=== PATIENT | female | born 1955 | race Caucasian/White ===

== ENCOUNTER → 2020-06-02 | Emergency (ER) | payer MEDICARE ==
[~2020-06-02] VITALS: Ht 157.5 cm; Wt 45.4 kg
[~2020-06-02] MED LIST: LORAZEPAM INJ 2 MG/ML VIAL ONE; NITROFURANTOIN/NITROFURAN MAC 100 MG CAPSULE ONE; OLANZAPINE 10 MG VIAL IM ONE; diphenhydrAMINE HCL 50 MG/ML VIAL ONE
--- NOTE | 2020-06-02 19:35 | NUR ---
DONI FROM [facility] FOR C/O AGITTION. ANXIETY AND REFUSING TO TAKE HER MEDICATIONS ( PER REPORT). THE PATIENT IS PLACED IN ER BED #12. DENIES PAIN. IN ROOM AIR AND DENIES SOB. RESPIRATION REGULAR AND UNLABORED. THE PATIENT IS NOTED TO BE AGITATED CONSTANT SCREENING/YELLING, TRYING TO KICK AND SCRATCH. WARM BLANKET PROVIDED FOR COMFORT. WILL CONTINUE TO MONITOR.
[2020-06-02] MEDS: OLANZAPINE 10 MG VIAL IM ONE (19:49)
[2020-06-02 21:08] LABS: BASOPHILS % (AUTO) 0.3 % (0.0-2.0); EOSINOPHILS % (AUTO) 0.3 % (0.0-6.0); HEMATOCRIT 31 % (33-45); HEMOGLOBIN 9.6 g/dL (11.5-14.8); LYMPHOCYTES # (AUTO) 3.6 /CMM (0.8-4.8); LYMPHOCYTES % (AUTO) 46.8 % (20.0-44.0); MEAN CORPUSCULAR HGB CONC 31 g/dl (31.0-36.0); MEAN CORPUSCULAR VOLUME 85 fL (82-100); MONOCYTES % (AUTO) 12.7 % (2.0-12.0); NEUTROPHILS # (AUTO) 3.1 /CMM (1.8-8.9); NEUTROPHILS % (AUTO) 39.9 % (43.0-81.0); PLATELET COUNT (AUTO) 393 /CMM (150-450); RED BLOOD CELL COUNT(AUTO) 3.67 MIL/uL (4.0-5.2); WHITE BLOOD COUNT (AUTO) 7.7 K/uL (4.3-11.0)
[2020-06-02 21:22] LABS: CARBON DIOXIDE 32 mmol/L (21-32); CHLORIDE 102 mmol/L (98-107); CREATININE 0.4 mg/dL (0.6-1.3); GLUCOSE 87 mg/dL (74-106); POTASSIUM 4.4 mmol/L (3.5-5.1); SODIUM SERUM 140 mmol/L (136-145); UREA NITROGEN, BLOOD 27 mg/dL (7-18)
[2020-06-02 21:28] LABS: ALANINE AMINOTRANSFERASE 16 U/L (12-78); ALBUMIN 3.2 g/dL (3.4-5.0); ALCOHOL, BLOOD < 3 mg/dL (0-0); ALKALINE PHOSPHATASE 75 U/L (46-116); ASPARTATE AMINOTRANSFERASE 18 U/L (15-37); BILIRUBIN,DIRECT 0.1 mg/dL (0.0-0.2); BILIRUBIN,TOTAL 0.2 mg/dL (0.2-1.0); TOTAL PROTEIN, SERUM 7.2 g/dL (6.4-8.2)
[2020-06-02] MEDS: LORAZEPAM INJ 2 MG/ML VIAL IM ONE (21:30)
[2020-06-02] MEDS: diphenhydrAMINE HCL 50 MG/ML VIAL IM ONE (21:30)
[2020-06-02 21:39] LABS: BILIRUBIN,URINE NEGATIVE (NEGATIVE); COLOR,URINE YELLOW (YELLOW); LEUKOCYTE ESTERASE ,URINE SMALL (NEGATIVE); NITRITE, URINE NEGATIVE (NEGATIVE); PH,URINE 6.5 (5.0-8.0); PROTEIN,URINE NEGATIVE (NEGATIVE); UGLUCOSE NEGATIVE (NEGATIVE); UROBILINOGEN,URINE 0.2 EU/dL (0.2)
[2020-06-02 21:43] LABS: BACTERIA,URINE 1+ /HPF (None Seen)
[2020-06-02 21:44] LABS: MUCUS,URINE Few /LPF (None Seen)
--- NOTE | 2020-06-02 23:30 | NUR ---
REC'D REPORT FROM SHAN BULL FOR ORAL
--- NOTE | 2020-06-03 00:37 | NUR ---
PT RESTING COMFORTABLY WITH EYES CLOSED. PT EASILY AROUSABLE.
--- NOTE | 2020-06-03 02:15 | NUR ---
PT RESTING COMFORTABLY WITH EYES CLOSED. EASILY AROUSABLE
--- NOTE | 2020-06-03 05:30 | NUR ---
ATTEMPTED TO MEDICATE PT. PT SEDATED, UNSAFE TO SWALLOW PILL AT THIS TIME. WILL ATTEMPT WHEN PT IS MORE AWAKE
--- NOTE | 2020-06-03 08:00 | NUR ---
Patient is resting comfortably in bed with eyes closed. Easily aroused. VSS
[2020-06-03] MEDS: NITROFURANTOIN/NITROFURAN MAC 100 MG CAPSULE PO ONE (10:47)
--- NOTE | 2020-06-03 10:47 | NUR ---
PT MEDICATED PER ERMD ORDER. PT SITTING UP EATING BREAKFAST. PT CALM & COOPERATIVE, NAD NOTED AT THIS TIME.
--- NOTE | 2020-06-03 11:42 | NUR ---
THE PATIENT IS IN ER BED #12. ALERT AND ORIENTED X2. DENIES PAIN. IN ROOM AIR AND DENIES SOB. RESPIRATION REGULAR AND UNLABORED. WILL CONTINUE TO MONITOR.
--- NOTE | 2020-06-03 12:08 | NUR ---
PATIENT SEEN AND EVALUATED BY 911 TELECOMMUNICATOR
--- NOTE | 2020-06-03 14:35 | NUR ---
CALLED [facility] FOR TRANSPORT TO [facility]. ETA 15-20 MINUTES.
--- NOTE | 2020-06-03 16:01 | NUR ---
Sales Route Driver Helper: managed services consultant consult requested to discuss plan of care with the patient. Patient is a 65-year-old, white female. SW met the patient at her hospital bed in the emergency department. Patient is alert and oriented x3 and was unable to discuss the reason for which she was brought into the hospital. Patient presents hyperverbal and agitated. Per patients medical records, patient was brought into the emergency department by paramedics due to agitation and refusal of her medications. Patient resides at [facility] ([address] [place] [address]; ). Patient requires a wheelchair for mobility. SW asked the patient about her history of substance use and patient stated, I dont want to talk about it. Patient stated that she has a history of Bipolar disorder. Per ED physician report, patient has a history of Schizophrenia and Anxiety. Patient denies any current hallucinations or delusions. Patient denies any current thoughts of suicide or homicide. PLAN: Patient to return to [facility], once medically cleared. SHAN Bullard is aware.
--- NOTE | 2020-06-03 16:31 | NUR ---
Patient discharged to home in stable condition. Written and verbal after care instructions given. Patient verbalizes understanding of instruction. The patient left ER in stable condition via arranged transpo.
[2020-06-03 16:32] VITALS: BP 135/82
== END | disposition home or self-care (01) ==
LOC: ER 19:18
DX: R46.1 Bizarre personal appearance (principal); I10 Essential (primary) hypertension
CPT/HCPCS: 36415; 80048; 80076; 80299; 80307; 80320; 81001; 85025; 96372 ×2; 99285; J1200; J2060; J3490; 87086-TC; G0480